=== PATIENT | male | born 1945 | race Caucasian/White ===

== ENCOUNTER → 2023-10-28 06:32 | Outpatient (REF) | payer OTHER, SELFPAY | LOC: PAVMRI 06:32 | PROVIDERS: ATTENDING PHYSICIAN Internal Medicine | DX: M54.16 Radiculopathy, lumbar region (principal) | CPT/HCPCS: 72148 ==

== ENCOUNTER 2023-11-19 10:28 | Emergency (ER) | payer OTHER, SELFPAY ==
[2023-11-19 10:32] VITALS: BP 141/88
--- NOTE | 2023-11-19 11:40 | ED.GENMED ---
History of Present Illness
General
Chief Complaint: Skin Surface Trauma
Time Seen by Provider: 11/19/23 11:23
History of Present Illness
History of Present Illness:
HPI: Earlier today, the patient was cutting wire with a pocket knife. He lost control and struck his left index finger. He went to urgent care who was concerned about the possibly of tendon rupture and sent him here for further evaluation.
EXAM:
GENERAL: Well appearing in no distress
HEENT: Moist oral mucosa
NEUROLOGIC: Excellent strength all extremities, no coordination deficits
PSYCHIATRIC: Appropriate mental status, normal insight and judgement
EXTREMITIES: There is a 1 cm laceration to the radial aspect of the right second digit with no clear evidence of tendon rupture based on physical examination as he has excellent function into extension and flexion at the DIP
SKIN: As above
TIME OF INITIAL ENCOUNTER: 11 AM
NUMBER AND COMPLEXITY OF PROBLEMS ADDRESSED AT THE ENCOUNTER
� Chronic conditions affecting care: High blood pressure, hyperlipidemia, has had MO
� Acute Exacerbation and/or Progression of Chronic Illness: An acute problem
� Differential Diagnosis includes: Finger laceration, no evidence for tendon rupture based on physical examination
AMOUNT AND/OR COMPLEXITY OF DATA TO BE REVIEWED AND ANALYZED
� I performed an independent evaluation of and my interpretation is:
EKG:
CT:
X-rays:
Laboratory Studies:
Other:
� Review of other/old records: CBC from 2011 was unremarkable
� Clinical information was obtained by an independent historian: None needed
� Prescriptions/Medications Considered but not given:
� Further testing considered but not performed:
RISK OF COMPLICATIONS AND/OR MORBIDITY OR MORTALITY OF PATIENT MANAGEMENT
� Social determinants of health affecting care: Lives at home
� Discussion with other providers:
� Escalation of care including admission/observation vs risk of discharge considered: The patient's wound was irrigated, cleaned with ChloraPrep, and sutured. Tetanus updated. I encourage patient to follow-up with a hand
specialist if he notices dysfunction affected finger however currently have very low suspicion for tendon involvement.
Past History
Past History
ED Past Medical History: CAD and Hypercholesterolemia
ED Past Surgical History: None
Social History
Tobacco: Non-smoker
Living: with family
Phy Exam
Physical Exam
Physical Exam:
See HPI
Course
Orders/Labs/Results
Orders:
Orders
11/19/23 11:41
Tetanus/Diphth/Acelpertussis [Adacel] 0.5 ml IM .ONCE ONE
Vital Signs
Initial and Last Documented VS:
Initial Vital Signs
Temp Pulse Resp BP Pulse Ox
98.1 F 78 18 141/88 96
11/19/23 10:32 11/19/23 10:32 11/19/23 10:32 11/19/23 10:32 11/19/23 10:32
Last Documented Vital Signs
Temp Pulse Resp BP Pulse Ox
98.1 F 78 18 141/88 96
11/19/23 10:32 11/19/23 10:32 11/19/23 10:32 11/19/23 10:32 11/19/23 10:32
Procedures
Laceration Closure
Left Distal Radial Second Finger:
Status of Wound: clean
Description of Wound Edges: sharp
Preparation: cleaned with saline and other (Chlorhexidine)
Anesthesia: 1% Lidocaine
Revision/Debridement: routine- no revision
Wound exploration: explored to base- no FB and no tendon involvement
Type of Closure: single layer closure
Skin Closure Material: 4-0 nylon
Number of sutures: 3
*Critical Care Note
Total Time (30-74mins, 75-104mins- exclusive of procedures): Not Applicable
ED Attending Note
-
Portions of this chart may have been created with voice recognition software.� Occasional wrong word or��sound alike� substitutions may have occurred due to the inherent limitations of voice recognition software.
Discharge Plan
Departure
Patient Disposition: Home (Routine Discharge)
Date of Disposition: 11/19/23
Time of Disposition: 11:40
Patient with high blood pressure during this ER visit?: Yes
Discharge Problem:
Laceration
Instructions: Laceration Repair With Stitches (DC), BLOOD PRESSURE
Prescriptions:
No Action
lisinopril 5 MG tablet
5 mg PO DAILY
metoprolol tartrate 25 MG tablet
25 mg PO DAILY
atorvastatin 40 MG tablet
40 mg PO QPM
aspirin 81 MG tablet,delayed release (DR/EC)
81 mg PO DAILY
tamsulosin 0.4 MG capsule
0.4 mg PO DAILY
sertraline 50 MG tablet
75 mg PO HS
cholecalciferol (vitamin D3) [Vitamin D3] 1,000 UNIT capsule
1,000 unit PO DAILY
polyethylene glycol 3350 17 GRAMS powder in packet
17 grams PO DAILY Qty: 5 0RF
oxycodone-acetaminophen [Endocet] 5-325 mg tablet
1 tab PO Q6H PRN (Reason: Pain) Qty: 7 0RF
Referrals:
Meera Benoit MD [Family Provider] -
Activity Restrictions/Additional Instructions:
Have stitches removed by your doctor in approximately 1 week. Return here if worse.
Interventions
Interventions:
*Risk Screen - Suicide Last Done: 11/19/23 10:32
*General Assessment Last Done: 11/19/23 10:32
*Neglect/Abuse Screening Last Done: 11/19/23 10:32
*ED COVID-19 Vaccine History Last Done: 11/19/23 10:32
*Nursing Disposition Last Done: 11/19/23 11:55
ED-Skin Assessment Last Done: 11/19/23 11:30
Discharge Date and Time
Discharge Date/Time: 11/19/23 11:55
Print Language: EGYPTIAN
[2023-11-19] MEDS: ADACEL 0.5 ML IM (11:49)
== END 2023-11-19 11:55 | disposition home or self-care (01) ==
LOC: EMR 10:28
PROVIDERS: EMERGENCY PHYSICIAN Emergency Medicine; FAMILY PHYSICIAN Internal Medicine
DX: S61.210A Laceration without foreign body of right index finger without damage to nail, initial encounter (principal); W26.0XXA Contact with knife, initial encounter; Z23 Encounter for immunization; I10 Essential (primary) hypertension; I25.10 Atherosclerotic heart disease of native coronary artery without angina pectoris; E78.00 Pure hypercholesterolemia, unspecified; I25.2 Old myocardial infarction
CPT/HCPCS: 99282; 12001; 90471; 90715

== ENCOUNTER → 2024-07-29 14:25 | Outpatient (REF) | payer OTHER, SELFPAY | LOC: HWRAD 14:25 | PROVIDERS: ATTENDING PHYSICIAN Internal Medicine | DX: R35.0 Frequency of micturition (principal) | CPT/HCPCS: 76770 ==

== ENCOUNTER → 2024-11-28 09:59 | Outpatient (REF) | payer OTHER, SELFPAY | LOC: RAD 09:59 | PROVIDERS: ATTENDING PHYSICIAN Internal Medicine | DX: R11.0 Nausea (principal); R10.9 Unspecified abdominal pain; R79.89 Other specified abnormal findings of blood chemistry; R17 Unspecified jaundice | CPT/HCPCS: 74177; Q9967 ==